=== PATIENT | male | born 1940 | race Caucasian/White ===

== ENCOUNTER → 2017-02-20 | Outpatient (CLI) | payer MEDICARE, OTHER ==
[~2017-02-20] MED LIST: ASPI-496 PO; ESOM20CA31 PO; [UNRECOGNIZED DRUG - REMARK] PO; [UNRECOGNIZED DRUG - REMARK] PO
== END | disposition home or self-care (01) ==
LOC: CVU 06:52
PROVIDERS: ATTEND Internal Medicine Cardiovascular Disease
DX: I73.9 Peripheral vascular disease, unspecified (principal); R06.02 Shortness of breath; R01.1 Cardiac murmur, unspecified; I70.8 Atherosclerosis of other arteries; R55 Syncope and collapse; I34.0 Nonrheumatic mitral (valve) insufficiency; I35.0 Nonrheumatic aortic (valve) stenosis; I45.10 Unspecified right bundle-branch block; R73.9 Hyperglycemia, unspecified; Z87.891 Personal history of nicotine dependence
CPT/HCPCS: 93306; 93880; 93922

== ENCOUNTER → 2017-02-21 | Outpatient (CLI) | payer MEDICARE, OTHER ==
[~2017-02-21] MED LIST changes: +REGADENOSON 0.4 MG/5 ML SYRINGE ONE
== END | disposition home or self-care (01) ==
LOC: CFH 07:34
PROVIDERS: ATTEND Internal Medicine Cardiovascular Disease
DX: I45.10 Unspecified right bundle-branch block (principal); R09.89 Other specified symptoms and signs involving the circulatory and respiratory systems; R06.02 Shortness of breath; M25.559 Pain in unspecified hip
CPT/HCPCS: 78452; 93017; A9502; J2785

== ENCOUNTER → 2018-02-22 | Outpatient (CLI) | payer MEDICARE, OTHER ==
[~2018-02-22] MED LIST changes: -REGADENOSON 0.4 MG/5 ML SYRINGE ONE
== END | disposition home or self-care (01) ==
LOC: CFH 12:29
PROVIDERS: ATTEND Family Medicine
DX: I35.0 Nonrheumatic aortic (valve) stenosis (principal); I35.8 Other nonrheumatic aortic valve disorders; I34.8 Other nonrheumatic mitral valve disorders; I51.7 Cardiomegaly; Z87.891 Personal history of nicotine dependence
CPT/HCPCS: 93306

== ENCOUNTER 2018-05-24 11:21 | Observation (INO) | payer MEDICARE, OTHER ==
[~2018-05-24] VITALS: Ht 171.4 cm; Wt 98.7 kg
[2018-05-24] MEDS ORDERED: MIDAZOLAM 1 MG/ML, 5ML ONE (12:24)
[2018-05-24] MEDS ORDERED: BIVALIRUDIN 250 MG ONE (12:24)
[2018-05-24] MEDS ORDERED: VERAPAMIL 2.5 MG/ML, 2ML ONE (12:24)
[2018-05-24] MEDS ORDERED: FENTANYL PF 100 MCG/2ML ONE (12:24)
[2018-05-24] MEDS ORDERED: TICAGRELOR 90 MG TABLET ONE (12:24)
[2018-05-24] MEDS ORDERED: HEPARIN 1,000 UNITS/ML, 10ML ONE (12:24)
[2018-05-24] MEDS ORDERED: LIDOCAINE-MPF 1%, 5ML ONE (12:25)
[2018-05-24 13:56] VITALS: BP 146/88
[2018-05-24 13:57] LABS: BASOPHILS # (AUTO) 0.02 x10^3/uL (0-0.1); BASOPHILS % (AUTO) 0 % (0-1); EOSINOPHILS % (AUTO) 3 % (1-7); LYMPHOCYTES # (AUTO) 2.53 x10^3/uL (1-3.4); LYMPHOCYTES % (AUTO) 35 % (22-44); MD NO; MEAN CORPUSCULAR HEMOGLOBIN 24.9 pg (27.5-34.5); MEAN CORPUSCULAR HGB CONC 32.7 g/dL (33.2-36.2); MEAN CORPUSCULAR VOLUME 76.3 fL (81-97); MEAN PLATELET VOLUME 8.1 fL (7.4-10.4); MONOCYTES # (AUTO) 0.64 x10^3/uL (0.2-0.8); MONOCYTES % (AUTO) 9 % (2-9); NEUTROPHILS # (AUTO) 3.95 x10^3/uL (1.8-6.8); NEUTROPHILS % (AUTO) 54 % (42-75); PLATELET COUNT 254 x10^3/uL (130-400); RED BLOOD COUNT 5.19 x10^6/uL (4.38-5.82); RED CELL DISTRIBUTION WIDTH 20.4 % (9.4-14.8)
[2018-05-24 14:03] LABS: ALANINE AMINOTRANSFERASE 36 U/L (12-78); ALBUMIN 3.9 g/dL (3.4-5.0); ANION GAP 8 mmol/L (5-15); CHLORIDE 105 mmol/L (98-107); CREATININE 0.86 mg/dL (0.7-1.3)
[2018-05-24 14:06] LABS: ALKALINE PHOSPHATASE 67 U/L (45-117); BILIRUBIN,TOTAL 0.7 mg/dL (0.2-1.0)
[2018-05-24] MEDS ORDERED: MIDAZOLAM 1 MG/ML, 2ML ONE (16:01)
[2018-05-24] MEDS ORDERED: MIDAZOLAM 1 MG/ML, 2ML IVPush ONE (16:30)
[2018-05-24] MEDS ORDERED: NITROGLYCERIN 5 MG/ML, 10ML ONE (17:31)
[2018-05-24] MEDS ORDERED: LIDOCAINE 1%, 20ML ONE (17:52)
[2018-05-24] MEDS ORDERED: SODIUM CHLORIDE 0.9% 1,000 ML IV SCH (18:12)
[2018-05-24 19:39] VITALS: BP 131/69
[2018-05-25 00:48] VITALS: BP 124/83
[2018-05-25] MEDS ORDERED: PANTOPROZOLE 40MG TABLET PO SCH (09:00)
== END 2018-05-25 10:52 | disposition home or self-care (01) ==
LOC: CACL 11:21 → 5SO 18:22 → CACL 23:15
PROVIDERS: ADMIT Internal Medicine Cardiovascular Disease; ATTEND Internal Medicine Cardiovascular Disease
DX: I25.10 Atherosclerotic heart disease of native coronary artery without angina pectoris (principal); I65.23 Occlusion and stenosis of bilateral carotid arteries; R55 Syncope and collapse; I35.0 Nonrheumatic aortic (valve) stenosis
CPT/HCPCS: 36415; 71046; 80053; 85025; 93458; 96374; 99156; 99157; C1760; C1769; C1894; G0378; J1644; J2250; J3010; J3490; Q9967; J0583

== ENCOUNTER 2018-06-05 04:24 | Inpatient (IN) | payer MEDICARE, OTHER ==
[2018-06-04 14:42] LABS: MICROSCOPIC NOT IND
[2018-06-04 14:47] LABS: BASOPHILS # (AUTO) 0.02 x10^3/uL (0-0.1); BASOPHILS % (AUTO) 0 % (0-1); EOSINOPHILS # (AUTO) 0.14 x10^3/uL (0-0.4); EOSINOPHILS % (AUTO) 2 % (1-7); LYMPHOCYTES # (AUTO) 1.83 x10^3/uL (1-3.4); LYMPHOCYTES % (AUTO) 29 % (22-44); MD NO; MEAN CORPUSCULAR HEMOGLOBIN 23.7 pg (27.5-34.5); MEAN CORPUSCULAR HGB CONC 31.6 g/dL (33.2-36.2); MEAN CORPUSCULAR VOLUME 75.2 fL (81-97); MONOCYTES # (AUTO) 0.62 x10^3/uL (0.2-0.8); MONOCYTES % (AUTO) 10 % (2-9); NEUTROPHILS # (AUTO) 3.74 x10^3/uL (1.8-6.8); NEUTROPHILS % (AUTO) 59 % (42-75); PLATELET COUNT 225 x10^3/uL (130-400); RED BLOOD COUNT 5.23 x10^6/uL (4.38-5.82); RED CELL DISTRIBUTION WIDTH 20.2 % (9.4-14.8)
[2018-06-04 14:57] LABS: INTERNATIONAL NORMALIZED RATIO 0.99 (0.93-1.1); PROTHROMBIN TIME 10.5 Seconds (9.6-11.5)
[2018-06-04 14:58] LABS: ALANINE AMINOTRANSFERASE 37 U/L (12-78); ALBUMIN 3.7 g/dL (3.4-5.0); ANION GAP 6 mmol/L (5-15); CALCIUM 8.6 mg/dL (8.5-10.1); CHLORIDE 108 mmol/L (98-107); CREATININE 0.88 mg/dL (0.7-1.3)
[2018-06-04 15:00] LABS: ALKALINE PHOSPHATASE 65 U/L (45-117); BILIRUBIN,TOTAL 0.4 mg/dL (0.2-1.0); TOTAL PROTEIN 7.7 g/dL (6.4-8.2)
[2018-06-04 15:16] LABS: HEMOGLOBIN A1C 6.4 % (4.2-6.3)
[~2018-06-05] VITALS: Ht 170.2 cm; Wt 96.3 kg
[2018-06-05 04:38] VITALS: BP_SYST 131; BP_SYST 134; BP_DIAS 83; BP_DIAS 84
[2018-06-05] MEDS ORDERED: CHLORHEXIDINE 15 ML UDC MM SCH (05:30)
[2018-06-05] MEDS ORDERED: INSULIN LISPRO 100 UNITS/ML, PEN SQ-INSULIN SCH (05:30)
[2018-06-05] MEDS ORDERED: MIDAZOLAM 10MG/2 ML ONE (06:48)
[2018-06-05] MEDS ORDERED: FENTANYL PF 250 MCG/5ML ONE ×4 (06:48→06:49)
[2018-06-05 06:59] VITALS: BP 116/80
[2018-06-05] MEDS ORDERED: REGULAR INSULIN 62.5 UNITS in SODIUM CHLORIDE 0.9% 249.375 ML IV PRN ×2 (07:30→11:08)
[2018-06-05] MEDS ORDERED: POTASSIUM CHLORIDE 80 MEQ, SODIUM BICARBONATE 8.4% 10 MEQ, MAGNESIUM SULFATE 0.5 GM, LI... IV PRN (07:30)
[2018-06-05] MEDS ORDERED: PHENYLEPHRINE 10 MG in SODIUM CHLORIDE 0.9% 249 ML IV PRN ×2 (07:30→11:08)
[2018-06-05] MEDS ORDERED: CEFUROXIME 1.5 GM in SODIUM CHLORIDE 0.9% 50 ML IVPB PRN (07:30)
[2018-06-05] MEDS ORDERED: ALBUMIN HUMAN 5% 500 ML IV PRN (07:30)
[2018-06-05] MEDS ORDERED: VANCOMYCIN 1,500 MG in SODIUM CHLORIDE 0.9% 250 ML IV PRN (07:30)
[2018-06-05] MEDS ORDERED: EPINEPHRINE 2 MG in SODIUM CHLORIDE 0.9% 248 ML IV SCH (07:30)
[2018-06-05] MEDS ORDERED: MANNITOL PMX 20% 500 ML IVPB PRN (07:30)
[2018-06-05] MEDS ORDERED: DEXMEDETOMIDINE 200 MCG in SODIUM CHLORIDE 0.9% 48 ML IV SCH (07:30)
[2018-06-05] MEDS ORDERED: MUPIROCIN OINT 2%, 22GM TP SCH (09:00)
[2018-06-05] MEDS ORDERED: SODIUM CHLORIDE FLUSH 10ML SYR IVF SCH (09:00)
[2018-06-05] MEDS: DOCUSATE 100 MG CAPSULE PO SCH ×2 (09:00→20:34)
[2018-06-05] MEDS ORDERED: ROCURONIUM 10MG/ML,5ML ONE ×2 (10:04)
[2018-06-05] MEDS ORDERED: PROPOFOL 10 MG/ML, 20ML ONE (10:04)
[2018-06-05] MEDS ORDERED: AMINOCAPROIC ACID 250 MG/ML, 20ML ONE ×2 (10:05)
[2018-06-05] MEDS ORDERED: PROTAMINE SULFATE 10 MG/ML, 25ML ONE ×2 (10:05)
[2018-06-05] MEDS ORDERED: VASOPRESSIN 50 UNIT in SODIUM CHLORIDE 0.9% 247.5 ML IV PRN (11:08)
[2018-06-05] MEDS ORDERED: SODIUM CHLORIDE 0.9% 1,000 ML IV PRN (11:08)
[2018-06-05] MEDS ORDERED: DEXMEDETOMIDINE 200 MCG in SODIUM CHLORIDE 0.9% 48 ML IV PRN (11:08)
[2018-06-05] MEDS ORDERED: DOBUTAMINE 250 MG in SODIUM CHLORIDE 0.9% 230 ML IV PRN (11:08)
[2018-06-05] MEDS ORDERED: NITROGLYCERIN/D5W PMX 250 ML IV PRN (11:08)
[2018-06-05] MEDS: KSCALE TO 4.5 IV SCH ×3 (11:30→23:30)
[2018-06-05] MEDS ORDERED: EPINEPHRINE 2 MG in SODIUM CHLORIDE 0.9% 248 ML IV PRN (11:30)
[2018-06-05] MEDS ORDERED: ACETAMINOPHEN 650 MG SUPP PR PRN (11:30)
[2018-06-05] MEDS ORDERED: PROCHLORPERAZINE 5 MG/ML, 2ML IVPush PRN (11:30)
[2018-06-05] MEDS ORDERED: DEXTROSE 50%, 50ML SYRINGE IVPush PRN (11:30)
[2018-06-05] MEDS ORDERED: BISACODYL 10 MG SUPP PR PRN (11:30)
[2018-06-05] MEDS ORDERED: INSULIN REGULAR 100 UNITS/ML, 3ML VIAL IVPush PRN (11:30)
[2018-06-05] MEDS ORDERED: GLUCAGON 1 MG IM PRN (11:30)
[2018-06-05] MEDS ORDERED: SODIUM BICARB 8.4%, 50ML SYRINGE IV PRN (11:30)
[2018-06-05] MEDS ORDERED: ONDANSETRON 2MG/ML, 2ML IVPush PRN (11:30)
[2018-06-05] MEDS ORDERED: BISACODYL 5 MG EC TABLET PO PRN (11:30)
[2018-06-05] MEDS ORDERED: MIDAZOLAM 1 MG/ML, 5ML IVPush PRN (11:30)
[2018-06-05] MEDS ORDERED: DEXTROSE 4 GM TAB.CHEW PO PRN (11:30)
[2018-06-05] MEDS ORDERED: HEPARIN 1,000 UNITS/ML, 30ML ONE (11:32)
[2018-06-05] MEDS ORDERED: LIDOCAINE 2% 100MG/5ML SYRINGE ONE (11:32)
[2018-06-05] MEDS ORDERED: SODIUM BICARBONATE 1 MEQ/ML, 50ML VIAL ONE (11:32)
[2018-06-05] MEDS ORDERED: ALBUMIN HUMAN 25% 50 ML ONE (11:33)
[2018-06-05] MEDS: LACTATED RINGERS 1,000 ML IV PRN ×2 (11:36→12:08)
[2018-06-05 11:40] LABS: GLUCOSE BY BLOOD GAS ANALYZER 149 mg/dL (70-110); HEMOGLOBIN BY BLOOD GAS ANALYZ 9.6 g/dL (14.0-18.0); POTASSIUM BY BLOOD GAS ANALYZR 4.3 mmol/L (3.6-5.5)
[2018-06-05 11:52] LABS: INTERNATIONAL NORMALIZED RATIO 1.21 (0.93-1.1); PROTHROMBIN TIME 12.7 Seconds (9.6-11.5)
[2018-06-05] MEDS: MAGNESIUM SULFATE 1 GM in SODIUM CHLORIDE 0.9% 50 ML IVPB SCH (12:09)
[2018-06-05] MEDS: INSULIN LISPRO 100 UNITS/ML, PEN SQ-INSULIN SCH ×2 (12:12→20:39)
[2018-06-05] MEDS: FENTANYL PF 100 MCG/2ML IVPush PRN ×3 (12:51→23:31)
[2018-06-05] MEDS ORDERED: PHARMACOKINETIC MONITORING MC PRN (13:00)
[2018-06-05] MEDS ORDERED: FUROSEMIDE 20 MG/2 ML IV ONE (16:30)
[2018-06-05] MEDS: OXYcodone IR 5MG TABLET PO PRN ×2 (18:31→19:23)
[2018-06-05] MEDS: VANCOMYCIN 1,500 MG in SODIUM CHLORIDE 0.9% 250 ML IVPB SCH (19:21)
[2018-06-05] MEDS: SODIUM CHLORIDE FLUSH 10ML SYR IVF SCH (20:31)
[2018-06-05] MEDS: MUPIROCIN OINT 2%, 22GM NAS SCH (20:32)
[2018-06-05] MEDS: HYDROcodone/APAP 5/325 TABLET PO PRN (22:46)
[2018-06-06] MEDS: CEFUROXIME 1.5 GM in SODIUM CHLORIDE 0.9% 50 ML IVPB SCH ×2 (01:48→14:28)
[2018-06-06] MEDS: HYDROcodone/APAP 10/325 MG TABLET PO PRN ×2 (02:49→07:31)
[2018-06-06 04:26] LABS: INTERNATIONAL NORMALIZED RATIO 1.01 (0.93-1.1); PROTHROMBIN TIME 10.7 Seconds (9.6-11.5)
[2018-06-06 04:27] LABS: ALBUMIN 3.3 g/dL (3.4-5.0); ANION GAP 5 mmol/L (5-15); CALCIUM 7.7 mg/dL (8.5-10.1); CHLORIDE 108 mmol/L (98-107); CREATININE 0.83 mg/dL (0.7-1.3)
[2018-06-06 05:00] LABS: BASOPHILS # (AUTO) 0.01 x10^3/uL (0-0.1); BASOPHILS % (AUTO) 0 % (0-1); EOSINOPHILS % (AUTO) 0 % (1-7); LYMPHOCYTES # (AUTO) 1.21 x10^3/uL (1-3.4); LYMPHOCYTES % (AUTO) 9 % (22-44); MD NO; MEAN CORPUSCULAR HEMOGLOBIN 24.4 pg (27.5-34.5); MEAN CORPUSCULAR HGB CONC 32.4 g/dL (33.2-36.2); MEAN CORPUSCULAR VOLUME 75.4 fL (81-97); MEAN PLATELET VOLUME 8.2 fL (7.4-10.4); MONOCYTES # (AUTO) 0.95 x10^3/uL (0.2-0.8); MONOCYTES % (AUTO) 7 % (2-9); NEUTROPHILS # (AUTO) 12.03 x10^3/uL (1.8-6.8); NEUTROPHILS % (AUTO) 85 % (42-75); PLATELET COUNT 154 x10^3/uL (130-400); RED CELL DISTRIBUTION WIDTH 19.8 % (9.4-14.8)
[2018-06-06] MEDS: OXYcodone IR 5MG TABLET PO PRN (05:21)
[2018-06-06] MEDS: KSCALE TO 4.5 IV SCH (05:30)
[2018-06-06] MEDS: DOCUSATE 100 MG CAPSULE PO SCH ×2 (07:31→20:50)
[2018-06-06] MEDS: INSULIN LISPRO 100 UNITS/ML, PEN SQ-INSULIN SCH ×4 (07:31→20:53)
[2018-06-06] MEDS: VANCOMYCIN 1,500 MG in SODIUM CHLORIDE 0.9% 250 ML IVPB SCH (07:31)
[2018-06-06] MEDS: MUPIROCIN OINT 2%, 22GM NAS SCH ×2 (07:32→20:50)
[2018-06-06] MEDS: ASPIRIN 81 MG TABLET EC PO SCH (08:52)
[2018-06-06] MEDS: SODIUM CHLORIDE FLUSH 10ML SYR IVF SCH ×2 (08:53→20:49)
[2018-06-06] MEDS ORDERED: FUROSEMIDE 20 MG/2 ML IV ONE (09:00)
[2018-06-06] MEDS: WARFARIN BIOPROSTHETIC VALVE PROTOCOL 2-3 XX SCH (09:00)
[2018-06-06] MEDS: MAGNESIUM SULFATE 1 GM in SODIUM CHLORIDE 0.9% 50 ML IVPB SCH (11:37)
[2018-06-06] MEDS: HYDROcodone/APAP 5/325 TABLET PO PRN ×3 (11:50→20:50)
[2018-06-06] MEDS ORDERED: WARFARIN 5 MG TABLET PO-COUM ONE (18:00)
[2018-06-06] MEDS: CHLORHEXIDINE 15 ML UDC MM SCH (20:49)
[2018-06-07] MEDS: HYDROcodone/APAP 5/325 TABLET PO PRN ×2 (00:33→19:45)
[2018-06-07 04:38] LABS: BASOPHILS # (AUTO) 0.02 x10^3/uL (0-0.1); BASOPHILS % (AUTO) 0 % (0-1); EOSINOPHILS # (AUTO) 0.03 x10^3/uL (0-0.4); EOSINOPHILS % (AUTO) 0 % (1-7); LYMPHOCYTES % (AUTO) 10 % (22-44); MD NO; MEAN CORPUSCULAR HEMOGLOBIN 24.8 pg (27.5-34.5); MEAN CORPUSCULAR HGB CONC 32.6 g/dL (33.2-36.2); MEAN CORPUSCULAR VOLUME 76.2 fL (81-97); MEAN PLATELET VOLUME 8.1 fL (7.4-10.4); MONOCYTES # (AUTO) 0.87 x10^3/uL (0.2-0.8); MONOCYTES % (AUTO) 7 % (2-9); NEUTROPHILS # (AUTO) 9.64 x10^3/uL (1.8-6.8); NEUTROPHILS % (AUTO) 82 % (42-75); PLATELET COUNT 130 x10^3/uL (130-400); RED BLOOD COUNT 4.01 x10^6/uL (4.38-5.82); RED CELL DISTRIBUTION WIDTH 20.2 % (9.4-14.8)
[2018-06-07 04:49] LABS: PROTHROMBIN TIME 10.6 Seconds (9.6-11.5)
[2018-06-07 04:52] LABS: ANION GAP 3 mmol/L (5-15); CHLORIDE 101 mmol/L (98-107); CREATININE 0.71 mg/dL (0.7-1.3)
[2018-06-07] MEDS: ACETAMINOPHEN 325 MG TABLET PO PRN (06:07)
[2018-06-07] MEDS: INSULIN LISPRO 100 UNITS/ML, PEN SQ-INSULIN SCH ×4 (07:00→19:45)
[2018-06-07] MEDS: WARFARIN BIOPROSTHETIC VALVE PROTOCOL 2-3 XX SCH (07:57)
[2018-06-07] MEDS: SODIUM CHLORIDE FLUSH 10ML SYR IVF SCH ×2 (09:00→19:42)
[2018-06-07] MEDS: FUROSEMIDE 20 MG/2 ML IV SCH ×2 (09:25→19:42)
[2018-06-07] MEDS: CHLORHEXIDINE 15 ML UDC MM SCH ×2 (09:25→19:42)
[2018-06-07] MEDS: DOCUSATE 100 MG CAPSULE PO SCH ×2 (09:26→19:42)
[2018-06-07] MEDS: ASPIRIN 81 MG TABLET EC PO SCH (09:26)
[2018-06-07] MEDS: MUPIROCIN OINT 2%, 22GM NAS SCH ×2 (11:09→19:42)
[2018-06-07] MEDS: MAGNESIUM SULFATE 1 GM in SODIUM CHLORIDE 0.9% 50 ML IVPB SCH (11:09)
[2018-06-07] MEDS: GUAIFENESIN ER 600 MG TABLET PO PRN (16:34)
[2018-06-07] MEDS ORDERED: WARFARIN 5 MG TABLET PO-COUM ONE (18:00)
[2018-06-07] MEDS ORDERED: FILTER 0.22 MICRON IV PRN (22:30)
[2018-06-07] MEDS ORDERED: AMIODARONE 150 MG in DEXTROSE 5% 100 ML IV ONE (22:30)
[2018-06-07] MEDS: AMIODARONE 900 MG in DEXTROSE 5% 482 ML IV PRN (22:35)
[2018-06-08] MEDS: HYDROcodone/APAP 5/325 TABLET PO PRN ×3 (00:18→18:39)
[2018-06-08 04:38] VITALS: BP 119/70
[2018-06-08 04:45] LABS: BASOPHILS # (AUTO) 0.02 x10^3/uL (0-0.1); BASOPHILS % (AUTO) 0 % (0-1); EOSINOPHILS # (AUTO) 0.12 x10^3/uL (0-0.4); EOSINOPHILS % (AUTO) 1 % (1-7); LYMPHOCYTES # (AUTO) 1.63 x10^3/uL (1-3.4); LYMPHOCYTES % (AUTO) 19 % (22-44); MD NO; MEAN CORPUSCULAR HEMOGLOBIN 24.4 pg (27.5-34.5); MEAN CORPUSCULAR HGB CONC 32.7 g/dL (33.2-36.2); MEAN CORPUSCULAR VOLUME 74.7 fL (81-97); MONOCYTES # (AUTO) 0.67 x10^3/uL (0.2-0.8); MONOCYTES % (AUTO) 8 % (2-9); NEUTROPHILS # (AUTO) 6.07 x10^3/uL (1.8-6.8); NEUTROPHILS % (AUTO) 71 % (42-75); PLATELET COUNT 123 x10^3/uL (130-400); RED BLOOD COUNT 4.07 x10^6/uL (4.38-5.82); RED CELL DISTRIBUTION WIDTH 19.7 % (9.4-14.8)
[2018-06-08 04:54] LABS: ANION GAP 5 mmol/L (5-15); CALCIUM 8.1 mg/dL (8.5-10.1); CHLORIDE 101 mmol/L (98-107); CREATININE 0.77 mg/dL (0.7-1.3)
[2018-06-08] MEDS: ACETAMINOPHEN 325 MG TABLET PO PRN (05:59)
[2018-06-08] MEDS: INSULIN LISPRO 100 UNITS/ML, PEN SQ-INSULIN SCH ×2 (07:00→11:00)
[2018-06-08 07:54] LABS: PROTHROMBIN TIME 10.6 Seconds (9.6-11.5)
[2018-06-08] MEDS: DOCUSATE 100 MG CAPSULE PO SCH ×2 (08:19→21:09)
[2018-06-08] MEDS: MUPIROCIN OINT 2%, 22GM NAS SCH ×2 (08:19→21:09)
[2018-06-08] MEDS: FUROSEMIDE 20 MG/2 ML IV SCH (08:19)
[2018-06-08] MEDS: CHLORHEXIDINE 15 ML UDC MM SCH (08:19)
[2018-06-08] MEDS: ASPIRIN 81 MG TABLET EC PO SCH (08:19)
[2018-06-08] MEDS: SODIUM CHLORIDE FLUSH 10ML SYR IVF SCH ×2 (08:20→21:08)
[2018-06-08] MEDS: OXYcodone IR 5MG TABLET PO PRN (08:35)
[2018-06-08] MEDS: WARFARIN BIOPROSTHETIC VALVE PROTOCOL 2-3 XX SCH (09:00)
[2018-06-08 14:46] VITALS: BP 129/78
[2018-06-08] MEDS: AMIODARONE 900 MG in DEXTROSE 5% 482 ML IV PRN (15:04)
[2018-06-08] MEDS ORDERED: WARFARIN 10 MG TABLET PO-COUM SCH (18:00)
[2018-06-08 19:03] VITALS: BP 114/68
[2018-06-09 03:01] VITALS: BP 113/70
[2018-06-09] MEDS: HYDROcodone/APAP 5/325 TABLET PO PRN ×2 (05:24→13:48)
[2018-06-09 05:36] LABS: CHLORIDE 102 mmol/L (98-107)
[2018-06-09 05:40] LABS: ANION GAP 6 mmol/L (5-15); CALCIUM 8.7 mg/dL (8.5-10.1)
[2018-06-09 05:43] LABS: BASOPHILS # (AUTO) 0.03 x10^3/uL (0-0.1); BASOPHILS % (AUTO) 0 % (0-1); EOSINOPHILS # (AUTO) 0.18 x10^3/uL (0-0.4); EOSINOPHILS % (AUTO) 2 % (1-7); LYMPHOCYTES # (AUTO) 1.82 x10^3/uL (1-3.4); LYMPHOCYTES % (AUTO) 23 % (22-44); MD NO; MEAN CORPUSCULAR HEMOGLOBIN 24.7 pg (27.5-34.5); MEAN CORPUSCULAR VOLUME 77.2 fL (81-97); MEAN PLATELET VOLUME 8.1 fL (7.4-10.4); MONOCYTES # (AUTO) 0.59 x10^3/uL (0.2-0.8); MONOCYTES % (AUTO) 8 % (2-9); NEUTROPHILS # (AUTO) 5.19 x10^3/uL (1.8-6.8); NEUTROPHILS % (AUTO) 66 % (42-75); PLATELET COUNT 155 x10^3/uL (130-400); RED CELL DISTRIBUTION WIDTH 19.8 % (9.4-14.8)
[2018-06-09 06:57] VITALS: BP 114/71
[2018-06-09] MEDS: SODIUM CHLORIDE FLUSH 10ML SYR IVF SCH ×2 (09:05→21:14)
[2018-06-09] MEDS: GUAIFENESIN ER 600 MG TABLET PO PRN (09:05)
[2018-06-09] MEDS: ASPIRIN 81 MG TABLET EC PO SCH (09:05)
[2018-06-09] MEDS: AMIODARONE 200 MG TABLET PO SCH ×2 (09:05→21:08)
[2018-06-09] MEDS: DOCUSATE 100 MG CAPSULE PO SCH ×2 (09:05→21:08)
[2018-06-09] MEDS: WARFARIN BIOPROSTHETIC VALVE PROTOCOL 2-3 XX SCH (09:06)
[2018-06-09] MEDS: MUPIROCIN OINT 2%, 22GM NAS SCH ×2 (09:06→21:08)
[2018-06-09] MEDS ORDERED: MAGNESIUM HYDROXIDE 8%, 30ML UDC PO PRN (11:00)
[2018-06-09 12:29] VITALS: BP 122/75
[2018-06-09 16:37] LABS: INTERNATIONAL NORMALIZED RATIO 1.13 (0.93-1.1); PROTHROMBIN TIME 11.9 Seconds (9.6-11.5)
[2018-06-09] MEDS ORDERED: WARFARIN 10 MG TABLET PO-COUM ONE ×2 (18:00)
[2018-06-09 19:40] VITALS: BP 124/74
[2018-06-10 02:22] VITALS: BP 126/76
[2018-06-10 05:21] LABS: BASOPHILS # (AUTO) 0.02 x10^3/uL (0-0.1); BASOPHILS % (AUTO) 0 % (0-1); EOSINOPHILS # (AUTO) 0.21 x10^3/uL (0-0.4); EOSINOPHILS % (AUTO) 3 % (1-7); LYMPHOCYTES % (AUTO) 23 % (22-44); MD NO; MEAN CORPUSCULAR HEMOGLOBIN 23.6 pg (27.5-34.5); MEAN CORPUSCULAR HGB CONC 31.5 g/dL (33.2-36.2); MEAN CORPUSCULAR VOLUME 74.9 fL (81-97); MEAN PLATELET VOLUME 7.8 fL (7.4-10.4); MONOCYTES # (AUTO) 0.55 x10^3/uL (0.2-0.8); MONOCYTES % (AUTO) 8 % (2-9); NEUTROPHILS # (AUTO) 4.37 x10^3/uL (1.8-6.8); NEUTROPHILS % (AUTO) 66 % (42-75); PLATELET COUNT 162 x10^3/uL (130-400); RED BLOOD COUNT 4.45 x10^6/uL (4.38-5.82); RED CELL DISTRIBUTION WIDTH 19.9 % (9.4-14.8)
[2018-06-10 05:36] LABS: ANION GAP 6 mmol/L (5-15); CALCIUM 8.6 mg/dL (8.5-10.1); CHLORIDE 103 mmol/L (98-107); CREATININE 0.75 mg/dL (0.7-1.3)
[2018-06-10] MEDS: HYDROcodone/APAP 5/325 TABLET PO PRN (06:24)
[2018-06-10] MEDS: GUAIFENESIN ER 600 MG TABLET PO PRN ×2 (06:36→21:55)
[2018-06-10 06:52] VITALS: BP 125/74
[2018-06-10] MEDS: DOCUSATE 100 MG CAPSULE PO SCH ×2 (07:33→21:28)
[2018-06-10] MEDS: AMIODARONE 200 MG TABLET PO SCH ×2 (07:33→21:28)
[2018-06-10] MEDS: MUPIROCIN OINT 2%, 22GM NAS SCH (07:33)
[2018-06-10] MEDS: ASPIRIN 81 MG TABLET EC PO SCH (07:33)
[2018-06-10] MEDS: SODIUM CHLORIDE FLUSH 10ML SYR IVF SCH ×2 (07:34→21:29)
[2018-06-10] MEDS: WARFARIN BIOPROSTHETIC VALVE PROTOCOL 2-3 XX SCH (07:34)
[2018-06-10 07:50] LABS: INTERNATIONAL NORMALIZED RATIO 2.05 (0.93-1.1); PROTHROMBIN TIME 21.1 Seconds (9.6-11.5)
[2018-06-10 12:25] VITALS: BP 121/75
[2018-06-10] MEDS ORDERED: WARFARIN 5 MG TABLET PO-COUM ONE (18:00)
[2018-06-10 19:15] VITALS: BP 115/70
[2018-06-11 00:14] VITALS: BP 128/69
[2018-06-11] MEDS: HYDROcodone/APAP 5/325 TABLET PO PRN (00:33)
[2018-06-11 06:19] LABS: INTERNATIONAL NORMALIZED RATIO 3.48 (0.93-1.1); PROTHROMBIN TIME 35.2 Seconds (9.6-11.5)
[2018-06-11 06:23] LABS: ANION GAP 6 mmol/L (5-15); CALCIUM 8.7 mg/dL (8.5-10.1); CHLORIDE 105 mmol/L (98-107)
[2018-06-11 06:26] LABS: CREATININE 0.86 mg/dL (0.7-1.3)
[2018-06-11 08:00] VITALS: BP 117/72
[2018-06-11] MEDS ORDERED: HOLD COUMADIN MC PRN (08:00)
[2018-06-11] MEDS ORDERED: HYDR-3240 PO (08:06)
[2018-06-11] MEDS ORDERED: WARF2TAB PO (08:06)
[2018-06-11] MEDS ORDERED: AMIO200T42 PO (08:24)
[2018-06-11] MEDS: DOCUSATE 100 MG CAPSULE PO SCH (08:49)
[2018-06-11] MEDS: ASPIRIN 81 MG TABLET EC PO SCH (08:49)
[2018-06-11] MEDS: AMIODARONE 200 MG TABLET PO SCH (08:49)
[2018-06-11] MEDS: SODIUM CHLORIDE FLUSH 10ML SYR IVF SCH (08:50)
[2018-06-11] MEDS: WARFARIN BIOPROSTHETIC VALVE PROTOCOL 2-3 XX SCH (08:50)
[2018-06-11 14:53] VITALS: BP 124/71
== END 2018-06-11 16:25 | disposition home health service (06) | DRG 219 ==
LOC: 5SO 04:24 → CSU 09:47 → 5SO 06-08 14:21 → DCLOUNGE 06-11 16:06
PROVIDERS: ADMIT Thoracic Surgery (Cardiothoracic Vascular Surgery); ATTEND Thoracic Surgery (Cardiothoracic Vascular Surgery)
PROC: 5A1221Z Performance of Cardiac Output, Continuous (ICD-10-PCS; 2018-06-05)
PROC: B246ZZ4 Ultrasonography of Right and Left Heart, Transesophageal (ICD-10-PCS; 2018-06-05)
PROC: 02HV33Z Insertion of Infusion Device into Superior Vena Cava, Percutaneous Approach (ICD-10-PCS; 2018-06-05)
PROC: B548ZZA Ultrasonography of Superior Vena Cava, Guidance (ICD-10-PCS; 2018-06-05)
PROC: 02HQ32Z Insertion of Monitoring Device into Right Pulmonary Artery, Percutaneous Approach (ICD-10-PCS; 2018-06-05)
PROC: 02RF08Z Replacement of Aortic Valve with Zooplastic Tissue, Open Approach (ICD-10-PCS; principal; 2018-06-05 08:00)
DX: I35.0 Nonrheumatic aortic (valve) stenosis (principal); Z00.6 Encounter for examination for normal comparison and control in clinical research program; J96.00 Acute respiratory failure, unspecified whether with hypoxia or hypercapnia; J81.1 Chronic pulmonary edema; I48.91 Unspecified atrial fibrillation; Z96.641 Presence of right artificial hip joint; K21.9 Gastro-esophageal reflux disease without esophagitis; K59.00 Constipation, unspecified; Z87.891 Personal history of nicotine dependence; Z88.5 Allergy status to narcotic agent; Z79.82 Long term (current) use of aspirin
CPT/HCPCS: 36415; 36600; 71045; 71046; 80048; 80053; 81003; 82040; 82330; 82800; 82803; 82810; 82947; 82962; 83036; 83735; 84132; 84295; 85014; 85018; 85025; 85049; 85347; 85610; 85730; 86850; 86900; 86902; 86923; 87081; 88305; 88311; 93005; 93312; 93321; 93325; 93880; 94002; 94150; C1768; G0378; J0697; J1644; J1815; J2250; J2405; J2704; J2720; J3010; J3370; J3475; J3480; J3490; P9045; P9047; C1751; C1760; J0171; J0282; J1940; J2370; J7050; J7060; J7120